=== PATIENT | male | born 1950 | race Caucasian/White ===

== ENCOUNTER 2017-11-22 06:50 | Day surgery (SDC) | payer BC ==
[2017-11-22] MEDS ORDERED: LIDOCAINE 2% (SDV) 5 ML INJ ×2 (08:21→09:20)
[2017-11-22] MEDS ORDERED: PROPOFOL 20 ML ×2 (08:21→09:20)
== END 2017-11-22 12:27 | disposition home or self-care (01) ==
LOC: GIL 06:50
DX: R12 Heartburn (principal); K21.9 Gastro-esophageal reflux disease without esophagitis; K29.60 Other gastritis without bleeding; K64.8 Other hemorrhoids; E78.5 Hyperlipidemia, unspecified; I10 Essential (primary) hypertension; Z87.891 Personal history of nicotine dependence
CPT/HCPCS: 43239; 82962; 87081; 88305; 88312